=== PATIENT | male | born 1985 | race Caucasian/White ===

== ENCOUNTER 2023-11-10 10:44 | Outpatient (CLI) | payer OTHER ==
--- NOTE | 2023-11-10 11:36 | Sleep Patient Instructions ---
Sleep Center Visit Summary - Patient Visit Information Reason for Visit: Initial consult - Patient Instructions Instructions Attached: Sleep Study Home Monitor, Sleep Study Additional Instructions: You will be completing a sleep study, either an in-lab polysomnography (PSG) or home sleep study (HST). You will follow-up in the sleep care office after the sleep study is completed to hear the results and talk about therapy, if needed. You will be called by our office staff to schedule this appointment, but you may contact us with any questions. - Clinic Information Contact: [facility] [address] [place] [address] [email or web address] T: [phone]
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
[2023-11-10 11:48] VITALS: BP 133/87; O2SAT 96
== END 2023-11-10 10:45 | disposition home or self-care (01) ==
LOC: SC 10:44
PROVIDERS: ATTEND Nurse Practitioner Family
DX: G47.10 Hypersomnia, unspecified (principal); R06.83 Snoring; R06.81 Apnea, not elsewhere classified; R41.89 Other symptoms and signs involving cognitive functions and awareness
CPT/HCPCS: 99203; 99212

== ENCOUNTER 2023-12-09 09:27 | Outpatient (CLI) | payer OTHER | END 2023-12-09 09:28 | disposition home or self-care (01) | LOC: SC 09:27 | PROVIDERS: ATTEND Nurse Practitioner Family | DX: G47.33 Obstructive sleep apnea (adult) (pediatric) (principal); R09.02 Hypoxemia | CPT/HCPCS: 95806 ==

== ENCOUNTER 2023-12-31 10:13 | Outpatient (CLI) | payer OTHER ==
--- NOTE | 2023-12-31 10:36 | Sleep Patient Instructions ---
Sleep Center Visit Summary - Patient Visit Information Reason for Visit: Sleep study follow-up - Patient Instructions Instructions Attached: CPAP Additional Instructions: You are being started on CPAP therapy with pressure setting at 4-15 cmH2O. You w ill need to call the sleep care office to set up your follow up once you have your CPAP machine to check compliance and response to therapy at that time. You may call the office with any concerns about pressure feeling too low or too much for adjustment, if needed. You should contact DME supplier for any questions or concerns about mask or equipment. Please call office to schedule a follow up appointment in the sleep care office one month after obtaining new device. - Clinic Information Contact: [facility] [address] [place] [address] [email or web address] T: [phone]
--- NOTE | 2023-12-31 10:38 | SLEEP CARE CONSULTATION ---
Information from patient questionnaire entered by Macarena Rockwell. I have reviewed and concur with the information entered by Macarena Rockwell. This document represents the service I personally performed and the decisions made by me, Mirela Jackson ARNP. History of Present Illness Service Date and Time: 12/31/2023 1013 Initial [place] Sleepiness Scale score: 15 (11/10/23) Current [place] Sleepiness Scale score: 16 (12/31/23) Additional HPI information: ERICK QUEVEDO returns for follow up and results of the recently performed home sleep study. The sleep study done on 12/09/23 showed severe obstructive sleep apnea with an average AHI of 41 and yesy oxygen saturation of 79%. I explained the pathophysiology behind obstructive sleep apnea. We then spent quite a bit of time discussing different treatment options. For mild obstructive sleep apnea, surgery and oral appliance are alternatives to nasal CPAP therapy but in moderate or severe cases, nasal CPAP is the most effective and reliable treatment. I reviewed the impact of weight changes on sleep apnea and strongly recommended losing weight. After some discussion, the patient opted to go with the nasal CPAP therapy. Nasal autoCPAP set at 4-15 cmH20 will be ordered with rationale explained. A manual titration study will be ordered if unable to find optimal pressure with office adjustments. I explained how CPAP machine works and what to expect when using the machine. Using CPAP every night in order to get used to it was emphasized. Patient advised to put CPAP mask on before getting into bed so as not to fall asleep without CPAP. To assist acclimation to CPAP use, it could also be used for a short time during day while reading or watching TV. The patient was instructed to call the CPAP supplier to discuss any mechanical problem that may occur. If the mask given is uncomfortable or is difficult to keep on through the night even with adjustment, contact the CPAP supplier as many will replace with another mask style if notified before 30 days. If snoring or perceives is not getting enough air or too much air from the machine, notify this office. Patient counseled not drink alcohol less than 4 hours before bedtime as it can increase snoring and apnea. Patient was cautioned about risks of drowsy driving until sleepiness symptoms resolve. Sleep Study - Results Type of Sleep Study: Home sleep study (COMPLETED 12/09/23) Prior sleep studies: No Polysomnography/Home Sleep Study results: Physician Impression: The quality of the study is good. The length of the study is adequate (> 240 minutes). Please also see the tabulated and graphic data. 1. Obstructive Sleep Apnea-Hypopnea (ICD-10 G47.33), severe, with an AHI of 41.0/hr and yesy SaO2 of 79%. During the study, the patient had 289 apneas (289 obstructive, 0 central, 0 mixed) and 32 hypopneas. The longest episode lasted 90.5 seconds. The respiratory events occurred more frequently during supine sleep (supine AHI was 44.9 and non-supine, 23.08). 2. Hypoxemia (ICD-10 R09.02), moderate, with the lowest oxygen saturation of 79 % and 3.0 minutes with SaO2 under 90%. Baseline oxygen saturation was normal (Average oxygen saturation was 96%). Allergies and Home Medications Known drug allergies: Yes (as listed) Drug allergies reviewed: Yes Home medication list reviewed: Yes (no changes) Allergy and home medication list: Allergies acetaminophen [From Vicodin] Allergy (Verified 12/29/23 15:55) hydrocodone [From Vicodin] Allergy (Verified 12/29/23 15:55) Review of Systems Review of systems same as previous: Yes (NO CHANGE) Physical Exam Vital signs obtained and entered by: MACARENA Wilkes MA Blood Pressure: 133/80 (LEFT ARM) Cuff size: regular Heart Rate: 71 O2 Saturation: 99 Height: 6 ft 1 in Weight: 194 lb 9.6 oz Body Mass Index: 25.7 BMI Classification: Overweight Impression and Plan 1. Obstructive Sleep Apnea-Hypopnea Syndrome, severe, with lowest oxygen saturation of 79%. Obviously this is the cause of the patients symptoms of unrefreshed sleep, and excessive daytime sleepiness. Positive pressure therapy could benefit depression and attention deficit. As mentioned above, the patient will be started on nasal autoCPAP therapy with pressure set at 4-15 cmH2O. A manual titration study will be completed if unable to find optimal treatment pressure with office adjustments. Compliance guidelines also reviewed. A copy of compliance guidelines will be given for reference at check out. Because the apnea is more severe supine, I instructed to avoid sleeping supine using pillow positioning until able to start CPAP use. 2. Hypoxemia, moderate, with a yesy oxygen saturation of 79% and 3 minutes spent under 90%. The baseline oxygen saturation was normal with an average oxygen saturation of 96%. 3. Overweight, minimal. Currently patients BMI is 25.7. Obesity increases the risk of apnea, CPAP pressure requirements and overall health risks especially cardiovascular and diabetes. Thus patient is advised to maintain a healthy weight. * Nasal auto CPAP therapy, pressure at 4-15 cm H2O. * Maintain a healthy weight. * Avoid alcohol consumption near bedtime. * Avoid supine sleep until using CPAP. * The patient is again cautioned about driving until sleepiness completely resolves. * Return one month after CPAP obtained. I will assess response to therapy and compliance at that time. Counseling Topics: Sleeping position Prescriptions: Auto CPAP Plan: start CPAP and compliance followup Visit Type: In Office Time Spent with Patient (minutes): 20 Provider Statement: I spent 100% of the Face to Face Visit with the patient with greater than 50% spent counseling the patient and coordination of care.
[2023-12-31 10:40] VITALS: BP 133/80; O2SAT 99
== END 2023-12-31 10:14 | disposition home or self-care (01) ==
LOC: SC 10:13
PROVIDERS: ATTEND Nurse Practitioner Family
DX: G47.33 Obstructive sleep apnea (adult) (pediatric) (principal); R09.02 Hypoxemia; E66.3 Overweight; Z68.25 Body mass index [BMI] 25.0-25.9, adult
CPT/HCPCS: 99212; 99213